=== PATIENT | female | born 1995 | race Two or more races ===

== ENCOUNTER 2023-10-21 17:18 | Outpatient (CLI) | payer OTHER ==
[2023-10-21] MEDS ORDERED: OBSTETRIX ONE1 EAC1 PO (17:35)
[2023-10-21] MEDS ORDERED: DICLEGIS DR 101 EACH (17:36)
[2023-10-21] MEDS ORDERED: RINGERS SOLUTION,LACTATED 1,000 ML IV SCH (18:15)
[2023-10-21] MEDS ORDERED: DOCUSATE CALCIUM 240 MG CAPSULE PO SCH (21:00)
[2023-10-21] MEDS ORDERED: CYCLOBENZAPRINE HCL 5 MG TABLET PO PRN (21:00)
== END 2023-10-21 20:40 | disposition home or self-care (01) ==
LOC: OBS/DEL 17:18
PROVIDERS: ATTEND Obstetrics & Gynecology
DX: O26.893 Other specified pregnancy related conditions, third trimester (principal); K59.09 Other constipation; Z3A.38 38 weeks gestation of pregnancy

== ENCOUNTER 2023-10-27 11:53 | Inpatient (IN) | payer OTHER ==
[~2023-10-27] VITALS: Ht 154.9 cm; Wt 60.3 kg
[~2023-10-27 11:53] MED LIST: DICLEGIS DR 101 EACH; OBSTETRIX ONE1 EAC1 PO
[2023-10-27] MEDS ORDERED: SURFAK240 M1 PO (12:25)
[2023-10-27 13:05] LABS: HEMATOCRIT 34.2 % (36.0-45.00); HEMOGLOBIN 11.4 g/dL (12.0-15.00); MEAN CELL VOLUME 80.7 fL (80.00-100.00); MEAN CORPUSCULAR HEMOGLOBIN 26.8 pg (27.00-32.0); MEAN CORPUSCULAR HGB CONC 33.2 g/dl (32.0-36.0); PLATELET COUNT 150 K/uL (150-450); RED BLOOD COUNT 4.24 M/uL (4.00-6.00); RED CELL DISTRIBUTION WIDTH 15.9 % (11.5-14.5)
[2023-10-27 13:45] LABS: INR < 0.93; PARTIAL THROMBOPLASTIN TIME 25.1 SECONDS (22.0-34.0); PROTHROMBIN TIME 9.6 SECONDS (9.0-11.5)
[2023-10-27 13:56] LABS: BILIRUBIN TOTAL 0.35 mg/dL (0.3-1.2); CALCIUM 9.6 mg/dL (8.5-10.1); CREATININE SERUM 0.47 mg/dL (0.55-1.02); GFR 156.66; GLOBULINA 3.9 G/DL (2.4-3.5); POTASSIUM 4.51 mEq/L (3.5-5.1); TOTAL PROTEIN 6.9 gm/dL (6.4-8.2)
[2023-10-27] MEDS ORDERED: MORPHINE SULFATE 4 MG/ML CARTRIDGE IV PRN (14:15)
[2023-10-27] MEDS ORDERED: LABETALOL HCL 100 MG/20 ML ML IV ONE (16:15)
[2023-10-27] MEDS ORDERED: MAGNESIUM SULFATE IN WATER 100 ML IV ONE (16:15)
[2023-10-27] MEDS ORDERED: MAGNESIUM SULFATE IN WATER 500 ML IV SCH (16:15)
[2023-10-27] MEDS ORDERED: LABETALOL HCL 100 MG/20 ML ML IV PUSH STA (16:43)
[2023-10-27] MEDS ORDERED: OxyCODONE HCL/APAP UD (PERCOCET) PO PRN (16:45)
[2023-10-27] MEDS ORDERED: OXYTOCIN 1,000 ML IV SCH (16:45)
[2023-10-27] MEDS ORDERED: ERYTHROMYCIN BASE 1 GM TUBE OP SCH (16:45)
[2023-10-27] MEDS ORDERED: CHLORHEXIDINE GLUCONATE 120 ML BOTTLE TOP SCH (16:45)
[2023-10-27] MEDS ORDERED: LABETALOL HCL 100 MG TABLET PO SCH (17:00)
[2023-10-27] MEDS ORDERED: DOCUSATE SODIUM 100MG CAP PO SCH (17:00)
[2023-10-27] MEDS ORDERED: LIDOCAINE HCL 1% 10ML VIAL IJ ONE (17:15)
[2023-10-27] MEDS ORDERED: HYDROCORTISONE 2.5% 30 GM TUBE RECTAL SCH (19:15)
[2023-10-27] MEDS ORDERED: BENZOCAINE/MENTHOL 90 ML BOTTLE TOP SCH (20:00)
[2023-10-29] MEDS ORDERED: MAGNESIUM HYDROXIDE 30 ML BLIST.PACK PO NR (11:15)
[2023-10-29] MEDS ORDERED: MINERAL OIL 30 ML BLIST.PACK PO NR (11:15)
== END 2023-10-29 12:46 | disposition home or self-care (01) | DRG 768 ==
LOC: LDR 11:53 → OB/GYN 16:47
PROVIDERS: ADMIT Obstetrics & Gynecology Maternal & Fetal Medicine; ATTEND Obstetrics & Gynecology Maternal & Fetal Medicine
PROC: 10E0XZZ Delivery of Products of Conception, External Approach (ICD-10-PCS; principal; 2023-10-27)
PROC: 0DQR0ZZ Repair Anal Sphincter, Open Approach (ICD-10-PCS; 2023-10-27)
PROC: 0W8NXZZ Division of Female Perineum, External Approach (ICD-10-PCS; 2023-10-27)
PROC: 4A1HXCZ Monitoring of Products of Conception, Cardiac Rate, External Approach (ICD-10-PCS; 2023-10-27)
DX: O70.21 Third degree perineal laceration during delivery, IIIa (principal); Z37.0 Single live birth; Z3A.39 39 weeks gestation of pregnancy; Z20.822 Contact with and (suspected) exposure to COVID-19

== ENCOUNTER 2025-01-23 14:42 | Emergency (ER) | payer OTHER ==
[~2025-01-23] VITALS: Ht 154.9 cm; Wt 48.5 kg
[~2025-01-23 14:42] MED LIST changes: +SURFAK240 M1 PO
[2025-01-23] MEDS ORDERED: 0.9 % SODIUM CHLORIDE 1,000 ML IV ONE ×2 (16:15→22:30)
[2025-01-23] MEDS ORDERED: FAMOTIDINE/PF 20 MG/2 ML VIAL IV ONE (16:15)
[2025-01-23] MEDS ORDERED: ONDANSETRON HCL 2 MG/ML VIAL IV ONE (16:15)
[2025-01-23] MEDS ORDERED: FAMOTIDINE/PF 20 MG/2 ML VIAL ONE (16:52)
[2025-01-23] MEDS ORDERED: ONDANSETRON HCL 2 MG/ML VIAL ONE (16:52)
[2025-01-23] MEDS ORDERED: ACETAMINOPHEN 500 MG GEL..CAP PO ONE (16:53)
[2025-01-23 17:26] LABS: BASO % 0.2 % (0.1-1.2); EOS # 0.06 (0.04-0.54); EOS % 1.0 % (0.7-7.0); LYMPH # 1.71 (1.18-3.74); LYMPH % 28.0 % (19.3-53.1); MEAN PLATELET VOLUME 10.60 fl (9.4-12.4); MONO # 0.42 (0.24-0.82); MONO % 6.9 % (4.7-12.5); NEUT # 3.90 (1.56-6.13); NEUT % 63.7 % (34.0-71.1); RED CELL DISTRIBUTION WIDTH 12.8 % (11.6-14.4)
[2025-01-23 18:07] LABS: ALT/SGPT 17.0 U/L (12-78); AST/SGOT 14.0 U/L (15-37); BILIRUBIN TOTAL 0.76 mg/dL (0.3-1.2); BUN CREA RATIO 25.0 (7.0-25.0); CREATININE SERUM 0.48 mg/dL (0.55-1.02); GFR 151.85; GLOBULINA 4.0 G/DL (2.4-3.5); GLUCOSE FASTING 70.0 mg/dL (65-100); OSMOLALITY SERUM 272.0 MOSM/KG (275-295)
[2025-01-23 19:17] LABS: URINE APPEARANCE Clear; URINE BILIRRUBIN Negative (NEGATIVE); URINE BLOOD Negative; URINE COLOR Dark Yellow; URINE GLUCOSE Negative (NEGATIVE); URINE LEUKOCYTE Trace; URINE NITRATE Negative; URINE PROTEIN Trace (NEGATIVE); URINE UROBILINOGEN 1.0 E.U./dl
[2025-01-23 19:25] LABS: URINE BACTERIA 1534.6 uL (0.0-1933); URINE EPITHELIAL CELLS 15.6 uL (0.0-38.8); URINE RBC 4.8 uL (0.0-20.8); URINE WBC 29.8 uL (0.0-23.2)
[2025-01-23 19:36] LABS: COVID-19 AG NEGATIVE (NEGATIVE)
[2025-01-23 20:06] LABS: URINE CAST 0.43 uL (0.0-1.40); URINE KETONE >=160 (NEGATIVE)
[2025-01-23] MEDS ORDERED: PROMETHAZINE HCL 25 MG/ML AMPUL IM ONE (22:30)
[2025-01-23] MEDS ORDERED: MULTIVIT INFUSN,ADULT 4,VIT K 10 ML VIAL IV ONE (22:30)
[2025-01-24] MEDS ORDERED: PROMETHAZINE HCL 25 MG/ML AMPUL ONE (01:48)
[2025-01-24] MEDS ORDERED: ACETAMINOPHEN 500 MG GEL..CAP PO ONE (02:02)
[2025-01-24] MEDS ORDERED: FAMOTIDINE/PF 20 MG/2 ML VIAL IV SCH (05:00)
[2025-01-24] MEDS ORDERED: FAMOTIDINE/PF 20 MG/2 ML VIAL ONE (05:18)
== END 2025-01-24 12:32 | disposition home or self-care (01) ==
LOC: ER 14:43
PROVIDERS: General Practice
DX: Z33.1 Pregnant state, incidental (principal); Z3A.11 11 weeks gestation of pregnancy; R11.10 Vomiting, unspecified; Z20.822 Contact with and (suspected) exposure to COVID-19; Z88.2 Allergy status to sulfonamides
CPT/HCPCS: 36415; 96365; 96366; 96372; 99282; J2405; J2550; J3490 ×3; J7030 ×2